=== PATIENT | male | born 1995 | race Hispanic/Latino ===

== ENCOUNTER 2017-09-24 22:38 | Emergency (ER) | payer SELFPAY ==
[2017-09-24] MEDS ORDERED: TETANUS/DIPHTHERIA TOXOID [ADULT] 0.5 ML VIAL IM ONE (23:23)
== END 2017-09-24 23:24 | disposition home or self-care (01) ==
LOC: EDH 22:38
DX: S61.412A Laceration without foreign body of left hand, initial encounter (principal); Z72.0 Tobacco use; W54.0XXA Bitten by dog, initial encounter; Y93.89 Activity, other specified; Y92.89 Other specified places as the place of occurrence of the external cause; Y99.8 Other external cause status
CPT/HCPCS: 90471; 90714

== ENCOUNTER 2021-04-05 11:35 | Emergency (ER) | payer OTHER ==
[~2021-04-05] VITALS: Ht 177.8 cm; Wt 124.7 kg
[2021-04-05 11:36] VITALS: BP 152/81
[2021-04-05] MEDS ORDERED: IBUP-2070 PO (13:25)
[2021-04-05] MEDS ORDERED: CYCL10 PO (13:25)
== END 2021-04-05 14:26 | disposition home or self-care (01) ==
LOC: EDH 11:35
DX: S76.012A Strain of muscle, fascia and tendon of left hip, initial encounter (principal); S76.011A Strain of muscle, fascia and tendon of right hip, initial encounter; X58.XXXA Exposure to other specified factors, initial encounter; Y93.89 Activity, other specified; Y92.89 Other specified places as the place of occurrence of the external cause; Y99.8 Other external cause status